=== PATIENT | female | born 2000 ===

== ENCOUNTER 2020-08-20 10:42 | Outpatient (CLI) | payer SELFPAY ==
[2020-08-20 13:18] VITALS: BP 109/69
[2020-08-20] MEDS ORDERED: LACTATED RINGERS 500 ML IV ONE (17:02)
== END 2020-08-20 15:15 | disposition home or self-care (01) ==
LOC: TRG 10:42 → EDBD 10:42 → APU 10:43 → TRG 15:15
PROVIDERS: ATTEND Obstetrics & Gynecology
DX: O47.1 False labor at or after 37 completed weeks of gestation (principal); Z3A.37 37 weeks gestation of pregnancy
CPT/HCPCS: 59025

== ENCOUNTER 2020-08-26 12:33 | Inpatient (IN) | payer OTHER, SELFPAY ==
[2020-08-26] MEDS ORDERED: LACTATED RINGERS 1,000 ML ONE (14:30)
[2020-08-26] MEDS ORDERED: OXYTOCIN DRIP 30,000 MILLIUNITS/500 ML BAG IV ONE (14:30)
[2020-08-26] MEDS ORDERED: MINERAL OIL 30 ML ORAL LIQD PO PRN (14:30)
[2020-08-26] MEDS ORDERED: LACTATED RINGERS 1,000 ML IV SCH (14:30)
[2020-08-26] MEDS ORDERED: TERBUTALINE 1 MG/1 ML INJ SUB-Q PRN (14:30)
[2020-08-26] MEDS ORDERED: BUTORPHANOL 2 MG/1 ML INJ IV PRN (14:30)
[2020-08-26] MEDS ORDERED: ONDANSETRON 4 MG/2 ML INJ IV PRN (14:30)
[2020-08-26] MEDS ORDERED: ePHEDrine SULFATE 50 MG/1 ML INJ IV PRN ×2 (14:30→15:53)
[2020-08-26] MEDS ORDERED: fentaNYL 100 MCG/2 ML INJ IV PRN (14:30)
--- NOTE | 2020-08-26 14:54 | History and Physical Report ---
History of Present Illness Date of examination: 08/26/20 Date of admission: 08/26/2020 Chief complaint: active labor History of present illness: 19yo, @ 37.6 wks, initiated care with [facility] at 24.6 wks gestation. Her has been complicated by GBS + status; +Chlamydia; UTI; hx of C/S and previous . She presents to [facility] with reports of regular painful ctxs. Reports +FM, denies VB or LOF. Labs: B+, antibody negative; rubella immune; RPR negative; HBsAg negative; HIV negative; Gonorrhea negative; 1hr gtt - 160; 3 hr gtt - 82; 196;126; 110; GBS positive. Past History Past Medical History: no pertinent history Past Surgical History: no surgical history [employer]ING [employer] History: chlamydia Family/Genetic History: none Social history: single, lives with family, full code. denies: smoking, alcohol abuse, prescription drug abuse, IV drug use - Obstetrical History Expected Date of Delivery: 09/10/20 Actual Gestation: 37 Week(s) 6 Day(s) : 3 Para: 2 Hx # Term Pregnancies: 2 Number of Pregnancies: 0 Spontaneous Abortions: 0 Induced : 0 Number of Living Children: 2 #1 Infant Gender: Male year: ,[birth year] Method of Delivery: (secondary to warts outside of vagina) Gestational age at delivery: 38 Complications: none #2 Gender: Male year: 2,018 Method of Delivery: Gestational age at delivery: 38 Complications: none Medications and Allergies Allergies Allergy/AdvReac Type Severity Reaction Status Date / Time No Known Allergies Allergy Verified 08/20/20 12:43 Active Meds: Active Medications Butorphanol Tartrate (Butorphanol 2 Mg/1 Ml Inj) 2 mg IV Q2H PRN PRN Reason: Pain , Severe (7-10) Ephedrine Sulfate (Ephedrine Sulfate 50 Mg/1 Ml Inj) 10 mg IV Q2M PRN PRN Reason: Hypotension Fentanyl (Fentanyl 100 Mcg/2 Ml Inj) 100 mcg IV Q2H PRN PRN Reason: Pain,Severe (7-10) LABOR PAIN Lactated Ringer's (Lactated Ringers) 1,000 mls @ 125 mls/hr IV DIRECT VAMSI Oxytocin/Sodium Chloride (Pitocin/Ns 30 Unit/500ml) 30 units in 500 mls @ 40 mls/hr IV TITR VAMSI; Protocol Ampicillin Sodium (Ampicillin/Ns 2 Gm/100 Ml) 2 gm in 100 mls @ 100 mls/hr IV ONCE ONE; Protocol Stop: 08/26/20 15:59 Ampicillin Sodium (Ampicillin/Ns 1 Gm/50 Ml) 1 gm in 50 mls @ 100 mls/hr IV Q4H VAMSI; Protocol Lidocaine (Lidocaine (2%) 20 Mg/1 Ml Vial 20 Ml Mdv) 20 ml INFILTRATI ONCE ONE Stop: 08/26/20 15:01 Mineral Oil (Mineral Oil 30 Ml Oral Liqd) 30 ml PO QHS PRN PRN Reason: Constipation Ondansetron HCl (Ondansetron 4 Mg/2 Ml Inj) 4 mg IV Q8H PRN PRN Reason: Nausea And Vomiting Terbutaline Sulfate (Terbutaline 1 Mg/1 Ml Inj) 0.25 mg SUB-Q ONCE PRN PRN Reason: Hyperstimulation/Hypertonicity Review of Systems All systems: negative Genitourinary: contractions (irregular and painful) - Vital Signs Vital signs: Vital Signs Pulse BP 92 H 103/63 08/26/20 13:45 08/26/20 13:45 Temp Pulse Resp BP Pulse Ox 98.9 F 78 20 102/63 98 08/26/20 14:06 08/26/20 14:47 08/26/20 14:06 08/26/20 14:44 08/26/20 14:47 - Physical Exam Breasts: Positive: normal Cardiovascular: Regular rate Lungs: Positive: Normal air movement Abdomen: Positive: other (gravid) Vagina: Positive: discharge (white, mucose-like) Uterus: Positive: enlarged (S<D) Extremities: Positive: normal Deep Tendon Reflex Grade: Normal +2 - Obstetrical FHR: category 1 Uterine Contraction Monitor Mode: External Cervical Dilatation: 9 (with BBOW per RN) Cervical Effacement Percentage: 80 station: -1 Uterine Contraction Frequency (min): 2-5 Uterine Contraction Pattern: Irregular Uterine Tone Measurement Phase: Resting Uterine Contraction Intensity: Strong/Firm Results Result Diagrams: 08/26/20 14:55 All other labs normal. Assessment and Plan - Patient Problems (1) Active labor at term Current Visit: Yes Status: Acute Plan to address problem: Admit to L & D Pain meds as desired per orders Anticipate (2) History of delivery affecting Current Visit: Yes Status: Acute (3) Hx successful (vaginal after ), currently Current Visit: Yes Status: Acute (4) Positive GBS test Current Visit: Yes Status: Acute Plan to address problem: Initiate GBS protocol (5) Chlamydia infection affecting Current Visit: Yes Status: Acute Plan to address problem: Treated on per records
[2020-08-26] MEDS ORDERED: AMPICILLIN/NS 2 GM/100 ML 2 GM/100 ML BAG IV ONE (15:00)
[2020-08-26] MEDS ORDERED: LIDOCAINE (2%) 20 MG/1 ML VIAL 20 ML MDV INFILTRATI ONE ×2 (15:00→19:34)
[2020-08-26] MEDS ORDERED: OXYTOCIN DRIP 30 UNITS/500 ML BAG IV SCH (15:00)
[2020-08-26 15:12] LABS: Hematocrit 37.2 % (30.3-42.9); Hemoglobin 13.1 gm/dl (10.1-14.3); Mean Corpuscular HGB Conc 35 % (30-34); Mean Corpuscular Volume 91 fl (79-97); Platelet Count 206 K/mm3 (140-440); Red Blood Count 4.08 M/mm3 (3.65-5.03); Red Cell Distribution Width 13.4 % (13.2-15.2)
[2020-08-26] MEDS ORDERED: NALOXONE 2 MG/2 ML INJ IV PRN (15:53)
--- NOTE | 2020-08-26 15:53 | Anesthesia Consultation ---
Anesthesia Consult and Med Hx Date of service: 08/26/20 - Airway Anesthetic Teeth Evaluation: Good ROM Head & Neck: Adequate Mental/Hyoid Distance: Adequate Mallampati Class: Class II Intubation Access Assessment: Good - Pulmonary Exam CTA: Yes - Cardiac Exam Cardiac Exam: RRR - Pre-Operative Health Status ASA Pre-Surgery Classification: ASA2 Proposed Anesthetic Plan: Epidural - Pulmonary Hx Smoking: No Hx Asthma: No Hx Respiratory Symptoms: No SOB: No COPD: No Home Oxygen Therapy: No Hx Pneumonia: No Hx Sleep Apnea: No - Cardiovascular System Hx Hypertension: No Hx Coronary Artery Disease: No Hx Heart Attack/AMI: No Hx Angina: No Hx Percutaneous Transluminal Coronary Angioplasty (PTCA): No Hx Cardia Arrhythmia: No Hx Pacemaker: No Hx Internal Defibrillator: No Hx Valvular Heart Disease: No Hx Heart Murmur: No Hx Peripheral Vascular Disease: No - Central Nervous System Hx Neuromuscular Disorder: No Hx Seizures: No CVA: No Hx Back Pain: No Hx Psychiatric Problems: No - Gastrointestinal Hx Ulcer: No Hx Gastroesophageal Reflux Disease: Yes - Endocrine Hx Renal Disease: No Hx End Stage Renal Disease: No Hx Cirrhosis: No Hx Liver Disease: No Hx Insulin Dependent Diabetes: No Hx Non-Insulin Dependent Diabetes: No Hx Thyroid Disease: No Hx Hypothyroidism: No Hx Hyperthyroidism: No - Hematic Hx Anemia: No Hx Sickle Cell Disease: No - Other Systems Hx Alcohol Use: No Hx Substance Use: No Hx Cancer: No Hx Obesity: No
--- NOTE | 2020-08-26 15:54 | Progress Note ---
Labor Epidural - Labor Epidural Start Time: 16:00 Stop Time: 16:13 Performed by:: CSEAR BUSTAMANTE Procedure: Patient is requesting a laboring epidural for laboring pain. Patient IDed, H&P reviewed, all questions and concerns were answered, and consent was signed. Timeout was performed at bedside. Patient in sitting position. Sterile prep and drape was performed. 3ml of 1% lidocaine skin wheal at L[3]- L [4]. 18- gauge Tuohy epidural needle was advanced to loss of resistance with air technique 4cm. Negative CSF negative blood. Epidural catheter advanced to [10] centimeters. [Negative] Aspiration [Negative] test dose. Sterile dressing applied. Patient tolerated procedure.
[2020-08-26] MEDS ORDERED: fentaNYL-BUPIV 2 MCG/ML-0.125% 200 MCG/100 ML BAG EPIDURAL SCH (16:00)
[2020-08-26] MEDS ORDERED: AMPICILLIN/NS 1 GM/50 ML 1 GM/50 ML BAG IV SCH (19:00)
--- NOTE | 2020-08-26 20:43 | Post Anesthesia Evaluation ---
- Post Anesthesia Evaluation Patient Participated: Yes Airway Patent: Yes Stable Respiratory Function: Yes Nausea/Vomiting: No Temp > 96.8F: Yes Pain Manageable: Yes Adequeate Hydration: Yes Anesthesia Complications: Yes Block Receding Appropriately: No Patient on Ventilator: Yes
--- NOTE | 2020-08-26 21:46 | Procedure Note ---
OB Delivery Note - Delivery Date of Delivery: 08/26/20 (1926) Surgeon: SAMANTHA HU (CLARA) Estimated blood loss: 200cc - Vaginal Delivery presentation: vertex Delivery position: OA Intrapartum events: febrile- temp >100.3 Delivery induction: none Delivery augmentation: rupture of membranes (AROM @ 1915) Delivery monitor: external FHT, external uterine Route of delivery: Delivery placenta: spontaneous (1929) Delivery cord: 3 umbilical vessels Episiotomy: none Delivery laceration: 1st degree (repaired with 3.0- SH) Delivery repair: vicryl Anesthesia: epidural Delivery comments: of viable, crying female , placed directly to maternal abdomen. Cord double clamped and cut by myself after cessation of pulsation. Placenta spontaneously delivered, anni, sent to pathology secondary to febrile. Uterus firm @ U-3, hemostasis maintained. Perineum with 1st degree laceration, repaired with 3.0 vicryl on SH. Mother and baby safe, stable and left in care of RN. - Infant A at 1 minute: 8 at 5 minutes: 9 Infant Gender: Female (Wt: 3025gms (6 lbs 11ozs) 20 inches)
[2020-08-26] MEDS ORDERED: oxyCODONE /ACETAMINOPHEN 5-325MG TAB PO PRN (21:59)
[2020-08-26] MEDS ORDERED: PROMETHAZINE 25 MG TAB PO PRN (21:59)
[2020-08-26] MEDS ORDERED: LANOLIN/ZINC/DIMETHICONE (LANSINOH) 7 GM TP PRN (21:59)
[2020-08-26] MEDS ORDERED: WITCH HAZEL/ GLYCERIN PAD TP PRN (21:59)
[2020-08-26] MEDS ORDERED: MAGNESIUM HYDROXIDE (MOM) ORAL LIQD UDC PO PRN (21:59)
[2020-08-26] MEDS ORDERED: diphenhydrAMINE 25 MG CAP PO PRN (21:59)
[2020-08-26] MEDS ORDERED: CLINDAMYCIN 300 MG CAP PO SCH (22:00)
[2020-08-26] MEDS ORDERED: GENTAMICIN/NS 80 MG/100 ML 100 ML IV SCH (22:00)
[2020-08-27] MEDS ORDERED: AMPICILLIN/NS 2 GM/100 ML 2 GM/100 ML BAG IV SCH
[2020-08-27] MEDS: IBUPROFEN 600 MG TAB PO SCH ×3 (00:22→11:14)
[2020-08-27 10:05] LABS: Hematocrit 32.2 % (30.3-42.9)
[2020-08-27] MEDS: PRENATAL VIT27-FE FUMARATE-FOLIC ACID VIT TAB PO SCH (11:14)
--- NOTE | 2020-08-27 13:09 | Progress Note ---
Assessment and Plan A: Day 1 Increased Lochia P: Follow routine orders Advised to change pad q 2-3 hrs and report any further heavy lochia Desires Depo prior to discharge; give Depo 150mg IM x 1 dose Subjective - Subjective Date of service: 08/27/20 Principal diagnosis: s/p ; Day 1 Patient reports: appetite normal, voiding normally, pain well controlled, flatus, ambulating normally, other (Pt reports heavy lochia. Has had pad on for 5 hours.) [place]: doing well, bottle feeding Objective - Vital Signs Latest vital signs: Vital Signs Temp Pulse Resp BP BP Pulse Ox 08/27/20 07:42 98.1 F 79 18 91/59 98 08/27/20 05:27 97.8 F 69 18 89/57 96 08/27/20 04:50 97.9 F 69 18 89/57 96 08/27/20 00:22 18 08/26/20 21:13 101 H 97 08/26/20 21:08 95 H 96 08/26/20 21:04 88 110/65 08/26/20 21:03 99 H 97 08/26/20 20:58 93 H 97 08/26/20 20:53 85 97 08/26/20 20:49 99 H 110/64 08/26/20 20:48 82 98 08/26/20 20:43 88 98 08/26/20 20:38 85 97 08/26/20 20:34 90 110/64 08/26/20 20:33 86 97 08/26/20 20:28 78 97 08/26/20 20:23 85 98 08/26/20 20:19 94 H 96/63 08/26/20 20:18 89 98 08/26/20 20:17 79 94 08/26/20 20:13 85 98 08/26/20 20:08 85 98 08/26/20 20:04 82 106/61 08/26/20 20:03 85 98 08/26/20 19:58 92 H 96 08/26/20 19:53 106 H 96 08/26/20 19:49 99 H 109/62 08/26/20 19:48 98 H 97 08/26/20 19:43 95 H 97 08/26/20 19:38 108 H 97 08/26/20 19:37 102.0 F H 12/15/20 19:34 107 H 114/73 12/15/20 19:33 98 H 97 12/15/20 19:28 111 H 98 12/15/20 19:23 128 H 98 12/15/20 19:20 142 H 171/108 12/15/20 19:18 124 H 97 12/15/20 19:13 114 H 98 1215/20 19:12 100.9 F H 119 H 18 113/72 15/20 19:08 116 H 113/72 97 15/20 19:04 112 H 110/71 1215/20 19:03 114 H 99 15/20 18:58 115 H 98 15/20 18:53 96 H 98 15/20 18:49 83 111/71 1215/20 18:48 77 98 12/15/20 18:43 74 98 12/15/20 18:38 87 98 1215/20 18:34 83 104/70 1215/20 18:33 94 H 98 15/20 18:28 87 97 1215/20 18:23 74 99 1215/20 18:20 83 101/69 12/15/20 18:18 74 98 12/15/20 18:13 81 98 12/15/20 18:08 79 96 1215/20 18:05 73 103/65 1215/20 18:03 68 97 12/15/20 17:58 71 96 12/15/20 17:53 78 97 1215/20 17:51 77 102/64 12/15/20 17:48 78 97 12/15/20 17:43 73 97 12/15/20 17:38 79 96 12/15/20 17:35 69 96/59 12/15/20 17:33 69 97 12/15/20 17:28 86 96 12/15/20 17:23 73 96 12/15/20 17:19 94 H 95/59 12/15/20 17:18 84 96 12/15/20 17:13 73 96 12/15/20 17:08 72 97 12/15/20 17:06 73 98/61 12/15/20 17:03 81 97 12/15/20 16:58 71 97 12/15/20 16:53 76 97 12/15/20 16:49 75 96/52 12/15/20 16:48 73 98 12/15/20 16:43 64 98 12/15/20 16:38 73 97 12/15/20 16:34 70 96/58 12/15/20 16:33 63 97 12/15/20 16:32 80 96/59 1215/20 16:28 65 98 1215/20 16:24 102 H 94/65 1215/20 16:23 67 99 1215/20 16:19 64 97/64 1215/20 16:18 65 98 1215/20 16:17 82 97/61 1215/20 16:13 77 98 12/15/20 16:08 85 97 1215/20 16:03 87 97 1215/20 15:58 37 L 97 15/20 15:52 78 96 1215/20 15:47 75 97 12/15/20 15:43 65 93 15/20 15:42 74 98 15/20 15:37 70 98 12/15/20 15:35 89 94 15/20 15:32 96 H 97 15/20 15:27 71 98 12/15/20 15:22 75 96 1215/20 15:17 66 96 1215/20 15:13 74 93 12/15/20 15:12 69 95 12/15/20 15:07 77 95 15/20 15:02 72 97 12/15/20 14:57 71 97 1215/20 14:52 72 98 1215/20 14:47 78 98 1215/20 14:44 81 102/63 12/15/20 14:42 78 97 12/15/20 14:25 86 95 12/15/20 14:20 87 91 12/15/20 14:17 71 94 12/15/20 14:15 73 95 1215/20 14:12 80 94 1215/20 14:10 74 93 1215/20 14:06 98.9 F 70 20 103/63 95 1215/20 14:05 73 95 1215/20 14:00 90 94 1215/20 13:59 105 H 91 1215/20 13:55 79 97 12/15/20 13:45 92 H 103/63 Intake and Output 08/26/20 08/27/20 08/27/20 22:59 06:59 14:59 Intake Total 240 240 Output Total 300 Balance -60 240 Intake: Oral 240 240 Output: Urine 300 Void 300 Other: Total, Intake Amount 240 240 Total, Output Amount 300 Estimated Blood Loss 200 - Exam Breasts: Present: normal Cardiovascular: Present: Regular rate, Normal S1, Normal S2 Lungs: Present: Clear to auscultation, Normal air movement Abdomen: Present: normal appearance, soft, normal bowel sounds Uterus: Present: normal, firm (no active bleeding with fundal massage), fundal height below umbilicus, other (pad saturated with lochia) Extremities: Present: normal - Labs Labs: Abnormal lab results 08/26/20 Range/Units 14:55 MCHC 35 H (30-34) %
[2020-08-27] MEDS ORDERED: medroxyPROGESTERone ACETATE 150 MG/ML SYRINGE IM SCH (13:30)
[2020-08-27 16:25] LABS: Bilirubin,Urine NEG (Negative); Blood,Urine LG (Negative); Color,Urine Yellow (Yellow); Mucus,Urine FEW /HPF; Urobilinogen,Urine < 2.0 mg/dL (<2.0)
[2020-08-27 16:31] LABS: RBC,Urine > 182.0 /HPF (0.0-6.0)
[2020-08-28] MEDS: IBUPROFEN 600 MG TAB PO SCH ×2 (06:00)
[2020-08-28] MEDS ORDERED: DIPHtheria,PERTUSSIS(ACELL),TETANUS VACCINE/PF 0.5 ML VIAL IM ONE (06:00)
[2020-08-28] MEDS ORDERED: MEASLES, MUMPS & RUBELLA 12,500 UNIT/0.5 ML VACCINE SUB-Q ONE (07:00)
[2020-08-28] MEDS: PRENATAL VIT27-FE FUMARATE-FOLIC ACID VIT TAB PO SCH (10:11)
[2020-08-28 18:28] VITALS: BP 99/56
--- NOTE | 2020-08-28 21:38 | Progress Note ---
Assessment and Plan PPD # 2 A: S/P 48 hr post Fever 102.0 F s/p UTI p: D/C home if stable - Patient Problems (1) UTI (urinary tract infection) Current Visit: Yes Status: Acute Subjective - Subjective Date of service: 08/28/20 Principal diagnosis: s/p ; Day 1 Patient reports: appetite normal, voiding normally, pain well controlled, ambulating normally [place]: doing well, bottle feeding Objective - Vital Signs Latest vital signs: Vital Signs Temp Pulse Resp BP BP Pulse Ox 08/28/20 17:05 98.4 F 63 18 99/56 97 08/28/20 08:40 98.2 F 68 18 88/56 96 08/28/20 06:00 18 08/28/20 01:00 98.3 F 65 18 86/58 96 08/28/20 00:00 18 Intake and Output 08/28/20 08/28/20 08/28/20 06:59 14:59 22:59 Intake Total 240 240 240 Balance 240 240 240 Intake: Oral 240 240 240 Other: Total, Intake Amount 120 240 240 # Voids Void 1 - Exam Breasts: Present: normal Lungs: Present: Clear to auscultation Abdomen: Present: normal appearance, soft, normal bowel sounds Vulva: both: normal Uterus: Present: normal, firm, fundal height below umbilicus Extremities: Present: normal Incision: Present: normal, intact
--- NOTE | 2020-08-28 21:47 | Discharge Summary ---
Providers - Providers Date of Admission: 08/26/20 14:40 Date of discharge: 08/28/20 Attending physician: DILMA HEATH JR, MD Primary care physician: DAPHNE FORD Hospitalization Reason for admission: active labor, IUP at term Delivery: Episiotomy: none Laceration: 1st degree Incision: normal, intact Other procedures: none complications: other (uti, fever) Discharge diagnosis: IUP at term delivered baby: female Hospital course: Pt was admitted in labor and had a . A fever of 102.0 was detected immed after delivering and a ua revealed a uti. Pt was given Gent and Ampicillin. The rest of pt's pp stay was w/o complications. Pt was d/cd home after 48 hours of being afebrile. See H&P, delivery summary, and pp notes. Condition at discharge: Stable Disposition: DC-01 TO HOME OR SELFCARE - Discharge Diagnoses (1) UTI (urinary tract infection) Status: Acute Plan - Discharge Medications Prescriptions: Ibuprofen [Motrin 600 MG tab] 600 mg PO Q6HR #30 tablet - Provider Discharge Summary Additional instructions: [] Smoking cessation referral if applicable(refer to patient education folder for contact #) [] Refer to [facility] Booklet Call your doctor immediately for: * Fever > 100.5 * Heavy vaginal bleeding ( >1 pad per hour) * Severe persistent headache * Shortness of breath * Reddened, hot, painful area to leg or breast * Drainage or odor from incision. * Keep incision clean and dry at all times and follow doctor's instructions regarding bathing/showering - Follow up plan Follow up: DAPHNE FORD MD [Primary Care Provider] - 6 Weeks
== END 2020-08-28 23:50 | disposition home or self-care (01) | DRG 806 ==
LOC: TRG 12:33 → APU 12:34 → TRG 14:39 → LD 14:40 → OB 22:03
PROVIDERS: ADMIT Obstetrics & Gynecology; ATTEND Obstetrics & Gynecology
PROC: 10E0XZZ Delivery of Products of Conception, External Approach (ICD-10-PCS; principal; 2020-08-26)
PROC: 3E0R3BZ Introduction of Anesthetic Agent into Spinal Canal, Percutaneous Approach (ICD-10-PCS; 2020-08-26)
PROC: 00HU33Z Insertion of Infusion Device into Spinal Canal, Percutaneous Approach (ICD-10-PCS; 2020-08-26)
PROC: 0HQ9XZZ Repair Perineum Skin, External Approach (ICD-10-PCS; 2020-08-26)
PROC: 3E0234Z Introduction of Serum, Toxoid and Vaccine into Muscle, Percutaneous Approach (ICD-10-PCS; 2020-08-28)
PROC: 3E0134Z Introduction of Serum, Toxoid and Vaccine into Subcutaneous Tissue, Percutaneous Approach (ICD-10-PCS; 2020-08-28)
DX: O98.82 Other maternal infectious and parasitic diseases complicating childbirth (principal); O86.20 Urinary tract infection following delivery, unspecified; Z37.0 Single live birth; O86.4 Pyrexia of unknown origin following delivery; O70.0 First degree perineal laceration during delivery; Z3A.37 37 weeks gestation of pregnancy; O99.824 Streptococcus B carrier state complicating childbirth
CPT/HCPCS: 36415; 81001; 85014; 85018; 85027; 86850; 86900; 86901; 87040; 87086; 88307; 90471; 90472; 90707; 90715; G0378; J0290; J1580; J2590; J7120